=== PATIENT | female | born 1990 | race Caucasian/White ===

== ENCOUNTER 2018-05-30 16:23 | Emergency (ER) | payer SELFPAY ==
[2018-05-30 17:59] VITALS: BP 158/92
--- NOTE | 2018-05-30 18:33 | UC ---
UC General HPI - HPI Summary HPI Summary: SORE THROAT X 5 DAYS. R EYE RED WITH DRAINAGE AND NOW BOTH EYES. ONSET YESTERDAY. + CONTACT USE. DENIES EYE PAIN, PHOTOPHOBIA AND VISUAL LOSS. - History of Current Complaint Chief Complaint: UCRespiratory Stated Complaint: SORE THROAT,CONGESTION,BILATERL EYE COMPLAINT Time Seen by Provider: 05/30/18 18:19 Hx Obtained From: Patient Hx Last Menstrual Period: today Onset/Duration: Gradual Onset Timing: Constant Pain Intensity: 6 Associated Signs & Symptoms: Negative: Fever, Headache - Allergy/Home Medications Allergies/Adverse Reactions: Allergies Allergy/AdvReac Type Severity Reaction Status Date / Time amoxicillin AdvReac Nausea And Verified 05/30/18 17:48 Diarrhea Home Medications: Home Medications Dm/PE/Acetaminophen/Doxylamine [Vicks Dayquil-Nyquil Cold-Flu] 1 dose PO BEDTIME PRN 05/30/18 [History Confirmed 05/30/18] Etonogest/Eth.estradiol (Nf) [Nuvaring Vaginal Ring] 1 each VAGINAL .SEE COMMENTS 05/30/18 [History Confirmed 05/30/18] Phenylephrine/Dm/Acetaminop/GG [Vicks Dayquil Severe Cold] 1 liq PO BID PRN [History Confirmed 05/30/18] PMH/Surg Hx/FS Hx/Imm Hx Previously Healthy: Yes - Surgical History Surgical History: None - Social History Occupation: Employed Full-time Lives: With Family Alcohol Use: Weekly Alcohol Amount: 5 Substance Use Type: None Smoking Status (MU): Light Every Day Tobacco Smoker Review of Systems All Other Systems Reviewed And Are Negative: Yes Constitutional: Positive: Negative Skin: Positive: Negative Eyes: Positive: Drainage, Eye Redness. Negative: Blurred Vision, Diplopia, Photophobia ENT: Positive: Sore Throat Respiratory: Positive: Negative Cardiovascular: Positive: Negative Gastrointestinal: Positive: Negative Genitourinary: Positive: Negative Motor: Positive: Negative Neurovascular: Positive: Negative Musculoskeletal: Positive: Negative Neurological: Positive: Negative Psychological: Positive: Negative Physical Exam Triage Information Reviewed: Yes Appearance: Well-Appearing Vital Signs: Initial Vital Signs Temp 98.1 F 05/30/18 17:53 Pulse 105 05/30/18 17:53 Resp 18 05/30/18 17:53 BP 158/92 05/30/18 17:53 Pulse Ox 100 12/21/18 17:53 Vital Signs Reviewed: Yes Eyes: Positive: Other: - No auricular adenopathy. No periorbital edema or erythema. PERRL, EOMI. Conjunctiva injected x2 with yellow/green exudates. ac is clear. ENT: Positive: Pharyngeal erythema, TMs normal, Uvula midline. Negative: Nasal congestion, Nasal drainage, Trismus, Muffled voice, Hoarse voice Neck: Positive: Supple, Tenderness @ - peritonsilar noed that are tender. Respiratory: Positive: Lungs clear, Normal breath sounds Cardiovascular: Positive: RRR, No Murmur Abdomen Description: Positive: Nontender, No Organomegaly, Soft Bowel Sounds: Positive: Present Musculoskeletal: Positive: ROM Intact Neurological: Positive: Alert Psychological: Positive: Age Appropriate Behavior Skin Exam: Normal Diagnostics - Laboratory Diagnostic Studies Completed/Ordered: rapid strp=positive. Course/Dx - Differential Dx - Multi-Symptom Differential Diagnoses: Other - no concern for corneal ulcers - Diagnoses Provider Diagnosis: Strep throat, Conjunctivitis Discharge - Sign-Out/Discharge Documenting (check all that apply): Patient Departure All imaging exams completed and their final reports reviewed: No Studies - Discharge Plan Condition: Stable Disposition: HOME Prescriptions: Ciprofloxacin 0.3% OPTH.DANIEL* [Cipro 0.3% Opth*] 2 drop BOTH EYES Q4H 7 Days #1 btl Penicillin VK 500 MG TAB(NF) [Penicillin VK 500 mg Tab] 500 mg PO BID 10 Days # 20 tab Patient Education Materials: Strep Throat (DC), Conjunctivitis (ED) Forms: *Work Release Referrals: ROGELIO Gonzalez [Medical Doctor] - 7 Days Additional Instructions: DISPOSE OF LAST CONTACTS USED. DO NOT WEAR CONTACTS UNTIL CLEARED ON FOLLOW UP VISIT. - Billing Disposition and Condition Condition: STABLE Disposition: Home - Attestation Statements Provider Attestation: Per institutional requirements, I have reviewed the chart, however, I was not consulted specifically or made aware of this patient by the midlevel provider. I did not personally evaluate, interact with , or disposition this patient.
== END 2018-05-30 18:51 | disposition home or self-care (01) ==
LOC: UCCORT 16:23
DX: J02.0 Streptococcal pharyngitis (principal); B95.0 Streptococcus, group A, as the cause of diseases classified elsewhere; H10.9 Unspecified conjunctivitis; F17.210 Nicotine dependence, cigarettes, uncomplicated; Z88.0 Allergy status to penicillin
CPT/HCPCS: 87651; 99202; G0463